=== PATIENT | male | born 1980 | race Native Hawaiian/Other Pacific Islander ===

== ENCOUNTER 2018-06-14 08:54 | Outpatient (CLI) | payer OTHER | END 2018-06-14 19:32 | disposition home or self-care (01) | LOC: RAD 08:54 | DX: M47.22 Other spondylosis with radiculopathy, cervical region (principal) ==

== ENCOUNTER 2020-06-11 13:50 | Emergency (ER) | payer OTHER ==
[~2020-06-11] VITALS: Ht 175.3 cm; Wt 113.4 kg
[2020-06-11 14:04] VITALS: TEMP 98.9
[2020-06-11 15:22] LABS: PLATELET COUNT 213 K/uL (142-355)
[2020-06-11 15:30] LABS: POTASSIUM 3.7 mmol/L (3.6-5.2)
[2020-06-12] VITALS: BP 100/67
== END 2020-06-12 00:18 | disposition still patient (30) ==
LOC: ED 13:54
PROVIDERS: Family Medicine
PROC: 0T9B70Z Drainage of Bladder with Drainage Device, Via Natural or Artificial Opening (ICD-10-PCS; principal; 2020-06-11)
DX: T14.91XA Suicide attempt, initial encounter (principal); F32.89 Other specified depressive episodes; T42.4X2A Poisoning by benzodiazepines, intentional self-harm, initial encounter; T40.2X2A Poisoning by other opioids, intentional self-harm, initial encounter; Y92.89 Other specified places as the place of occurrence of the external cause
CPT/HCPCS: 51702; 80053; 80185; 80307; 80320; 80329; 81000; 85027; 93005; 96365; 96374; 96375; 99285; J3490

== ENCOUNTER 2020-06-18 12:40 | Emergency (ER) | payer OTHER ==
[~2020-06-18] VITALS: Ht 175.3 cm; Wt 113.4 kg
[2020-06-18 12:52] VITALS: TEMP 98.4
[2020-06-18 13:26] LABS: PLATELET COUNT 239 K/uL (142-355)
[2020-06-18 13:35] LABS: POTASSIUM 4.3 mmol/L (3.6-5.2)
[2020-06-18 15:57] VITALS: BP 133/82
== END 2020-06-18 16:20 ==
LOC: ED 12:44
PROVIDERS: Family Medicine
DX: R56.9 Unspecified convulsions (principal); E03.8 Other specified hypothyroidism; F32.89 Other specified depressive episodes
CPT/HCPCS: 80053; 80307; 81000; 84439; 84443; 84479; 85027; 96360; 99284